=== PATIENT | female | born 2005 ===

== ENCOUNTER 2024-03-17 19:37 | Emergency (ER) | payer OTHER, SELFPAY ==
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
[2024-03-17 19:39] VITALS: BP 134/93; PULSE 116; RESP 15; TEMP 36.6; O2SAT 100
--- NOTE | 2024-03-17 19:52 | ECG_ITS ---
Test Date: 2024-03-17 20:14:18 Measurements Intervals [place] Rate: 89 P: 36 NC: 169 QRS: 22 QRSD: 80 T: 30 QT: 336 QTc: 409 Interpretive Statements SINUS RHYTHM LOW QRS VOLTAGE IN PRECORDIAL LEADS [QRS DEFLECTION < 1.0 mV IN CHEST LEADS] No previous ECG available for comparison Electronically Signed On 03-17-2024 21:05:18 MEDICAL TRANSCRIPTION RADIOLOGY by Nandini Kwon M.D.
[2024-03-17 20:09] LABS: BEDSIDEPREGUCG Negative (Negative)
[2024-03-17 20:59] LABS: Basophils Absolute Auto 0.1 K/mm3 (0.0-0.1); Basophils Percent Auto 0.7 % (0.2-1.2); Eosinophils Percent Auto 0.4 % (0-4.4); Hematocrit 38.3 % (37.0-47.0); Hemoglobin 13.2 g/dL (12.0-15.0); Immature Granulocyte Absolute 0.03 K/mm3 (0.00-0.031); Immature Granulocyte Percent A 0.3 % (0-0.5); Lymphocytes Percent Auto 12.8 % (18.3-44.2); Mean Corpuscular HGB Conc 34.5 g/dl (32-36); Mean Corpuscular Hemoglobin 29.7 pg (26-34); Mean Corpuscular Volume 86.3 fl (80-100); Mean Platelet Volume 11.3 fl (7.4-10.4); Monocytes Absolute Auto 0.6 K/mm3 (0.1-0.6); Monocytes Percent Auto 5.7 % (2.6-8.5); Neutrophils Absolute Auto 8.1 K/mm3 (1.3-6.7); Neutrophils Percent Auto 80.1 % (45.5-73.1); Platelet Count Result 317 k/mm3 (150-375); Red Blood Count 4.44 M/mm3 (4.2-5.4); Red Cell Distribution Width 11.9 % (11.5-14.5); White Blood Count 10.2 K/mm3 (4.5-10.0)
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
[2024-03-17 21:11] LABS: Alanine Aminotransferase 29 U/L (6-35); Albumin Level 4.5 g/dL (3.7-5.6); Alkaline Phosphatase 73 U/L (45-116); Anion Gap 7 mmol/L (4-12); Aspartate Amino Transferase 34 U/L (14-36); Bilirubin,Total 0.7 mg/dL (0.2-1.3); Blood Urea Nitrogen 10 mg/dL (8-21); Calcium 9.5 mg/dL (8.9-10.7); Carbon Dioxide 21 mmol/L (22-30); Chloride 110 mmol/L (98-107); Estimated CRCL calculation 88 ml/min; Estimated Glomerular Filt Rate > 60; Glucose 96 mg/dL (65-110); Potassium 3.6 mmol/L (3.4-5.0); Sodium 138 mmol/L (134-143)
[2024-03-17 21:12] LABS: INR 0.9
[2024-03-17 21:13] LABS: Partial Thromboplastin Time 28.7 Seconds (22.3-36.8)
--- NOTE | 2024-03-17 21:15 | PC.NURSE ---
Lab called to add on ordered baseline trop.
[2024-03-17 21:40] LABS: Troponin I < 0.012 ng/mL (0.000-0.034)
--- NOTE | 2024-03-17 21:53 | PC.NURSE ---
Pt. has no wounds upon inspection. Neuro intact. Pt. only complaint is mid-sternal chest pain.
[2024-03-17 22:35] VITALS: BP 119/83; PULSE 96; RESP 16; O2SAT 98
== END 2024-03-17 22:57 | disposition home or self-care (01) ==
PROVIDERS: Emergency Provider Physician Assistant; PCP Family Medicine
DX: R07.9 Chest pain, unspecified (principal); V89.2XXA Person injured in unspecified motor-vehicle accident, traffic, initial encounter
CPT/HCPCS: 36415; 70450; 71260; 72125; 74177; 80053; 81025; 84484; 85025; 85610; 85730; 93005; 99284; Q9967